=== PATIENT | female | born 1975 | race African-American/Black ===

== ENCOUNTER → 2017-06-29 | Outpatient (CLI) | payer OTHER ==
[~2017-06-29] MED LIST: CETI10 PO; FLUT50SP EACH NARE; IPRA0.03
== END ==
LOC: HPND 09:37
PROVIDERS: ATTEND Obstetrics & Gynecology
DX: O09.522 Supervision of elderly multigravida, second trimester (principal)
CPT/HCPCS: 76811

== ENCOUNTER → 2017-07-14 | Outpatient (CLI) | payer OTHER | LOC: HPND 14:25 | PROVIDERS: ATTEND Obstetrics & Gynecology | DX: O09.522 Supervision of elderly multigravida, second trimester (principal); O09.212 Supervision of pregnancy with history of pre-term labor, second trimester | CPT/HCPCS: 76815; 76817 ==

== ENCOUNTER → 2017-07-28 | Outpatient (CLI) | payer OTHER | LOC: HPND 13:56 | PROVIDERS: ATTEND Obstetrics & Gynecology | DX: O09.522 Supervision of elderly multigravida, second trimester (principal); O09.212 Supervision of pregnancy with history of pre-term labor, second trimester | CPT/HCPCS: 76816; 76817 ==

== ENCOUNTER → 2017-08-12 | Outpatient (CLI) | payer OTHER | LOC: HPND 09:40 | PROVIDERS: ATTEND Obstetrics & Gynecology | DX: O09.522 Supervision of elderly multigravida, second trimester (principal); O09.292 Supervision of pregnancy with other poor reproductive or obstetric history, second trimester; O09.212 Supervision of pregnancy with history of pre-term labor, second trimester; Z3A.00 Weeks of gestation of pregnancy not specified | CPT/HCPCS: 76815; 76817 ==

== ENCOUNTER → 2017-08-26 | Outpatient (CLI) | payer OTHER | LOC: HPND 09:50 | PROVIDERS: ATTEND Obstetrics & Gynecology | DX: O09.522 Supervision of elderly multigravida, second trimester (principal); O09.212 Supervision of pregnancy with history of pre-term labor, second trimester; O99.412 Diseases of the circulatory system complicating pregnancy, second trimester | CPT/HCPCS: 76816 ==

== ENCOUNTER 2017-10-28 10:56 | Emergency (ER) | payer MEDICAID ==
[2017-10-28 13:00] LABS: BILIRUBIN, URINE NEG (NEG); BLOOD, URINE NEG (NEG); GLUCOSE,URINE NEG (NEG); KETONE, URINE NEG (NEG); NITRITE,URINE NEG (NEG); PH, URINE 6.5 (5.0-8.5); SQUAMOUS EPITHELIAL CELL URINE <1 /hpf (0-5); URINE COLOR YELLOW (YELLW/STRAW); URINE LEUKOCYTE ESTERASE NEG (NEG)
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
== END 2017-10-28 13:05 | disposition home or self-care (01) ==
LOC: HOBED 10:56
DX: O47.03 False labor before 37 completed weeks of gestation, third trimester (principal); O09.523 Supervision of elderly multigravida, third trimester; Z3A.34 34 weeks gestation of pregnancy
CPT/HCPCS: 81001; 99283

== ENCOUNTER 2017-10-31 12:16 | Inpatient (IN) | payer MEDICAID ==
[~2017-10-31] VITALS: Ht 170.2 cm; Wt 83.0 kg
[2017-10-31] VITALS (9 sets, daily range): BP systolic 96–116; BP diastolic 58–62; PULSE 83–106; RESP 18; TEMP 97.9–98.4
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
[2017-10-31] MEDS: LACTATED RINGER'S 1000 ML INJ 1,000 ML IV SCH ×4 (13:47→23:24)
[2017-10-31] MEDS ORDERED: LACTATED RINGER'S 1000 ML INJ 1,000 ML IV PRN (13:47)
[2017-10-31] MEDS ORDERED: LIDOCAINE HCL 1% 50 ML VIAL I-DERMAL PRN (14:00)
[2017-10-31] MEDS ORDERED: MINERAL OIL 10 ML VIAL TOPICAL PRN (14:00)
[2017-10-31] MEDS ORDERED: SODIUM CHLORID 0.9% 500 ML INJ 500 ML IV PRN (14:00)
[2017-10-31] MEDS ORDERED: PENICILLIN G POTASSIUM INJ 5,000,000 UNITS in SODIUM CHLORIDE 0.9% INJ 100 ML IV ONE (14:00)
[2017-10-31] MEDS ORDERED: CITRIC ACID-SODIUM CITRATE LIQ 30 ML UDC PO SCH (14:00)
[2017-10-31] MEDS ORDERED: LIDOCAINE HCL 1% 50 ML VIAL INFIL PRN (14:00)
[2017-10-31] MEDS ORDERED: OXYTOCIN 30 UNITS-500ML PREMIX 500 ML IV ONE (14:00)
[2017-10-31] MEDS ORDERED: SODIUM CHLOR 0.9% 1000 ML INJ 1,000 ML IV PRN (14:07)
[2017-10-31] MEDS: BETAMETHASONE SOD PHOS/ACETATE SUSP 30 MG/5 ML VIAL IM SCH (14:17)
[2017-10-31 14:44] LABS: AUTOMATED NEUTROPHIL # 4.8 TH/MM3 (1.8-7.7); BASOPHIL % 0.4 % (0.0-2.0); EOSINOPHIL # 0.1 TH/MM3 (0-0.4); EOSINOPHIL % 0.8 % (0.0-4.0); HEMATOCRIT 33.3 % (35.0-46.0); HEMO FLAGS DIFF FINAL; LYMPH % 23.9 % (9.0-44.0); LYMPHOCYTE # 1.7 TH/MM3 (1.0-4.8); MEAN CELL VOLUME 84.1 FL (80.0-100.0); MEAN CORPUSCULAR HEMOGLOBIN 27.5 PG (27.0-34.0); MEAN CORPUSCULAR HGB CONC 32.7 % (32.0-36.0); MONO % 8.1 % (0.0-8.0); NEUT % 66.8 % (16.0-70.0); PLATELET COUNT 267 TH/MM3 (150-450); RED BLOOD COUNT 3.96 MIL/MM3 (4.00-5.30); RED CELL DISTRIBUTION WIDTH 13.1 % (11.6-17.2); WHITE BLOOD COUNT 7.2 TH/MM3 (4.0-11.0)
[2017-10-31] MEDS ORDERED: PREN29TA PO (14:59)
[2017-10-31 15:24] LABS: BACTERIA, URINE OCC /hpf; BLOOD, URINE NEG (NEG); COMMENT (UR) CULT NOT INDICATED; CULTURE IF INDICATED CULT NOT INDICATED; GLUCOSE,URINE NEG (NEG); KETONE, URINE NEG (NEG); MUCUS URINE FEW /lpf (OCC); NITRITE,URINE NEG (NEG); SQUAMOUS EPITHELIAL CELL URINE 3 /hpf (0-5); URINE COLOR YELLOW (YELLW/STRAW)
[2017-10-31] MEDS ORDERED: PENICILLIN G POTASSIUM INJ 2,500,000 UNITS in SODIUM CHLORIDE 0.9% INJ 100 ML IV SCH (18:00)
[2017-10-31] MEDS: PENICILLIN G POTASSIUM INJ 2,500,000 UNITS in SODIUM CHLORIDE 0.9% INJ 100 ML IV SCH (23:24)
[2017-11-01] VITALS (7 sets, daily range): BP systolic 101–108; BP diastolic 52–62; PULSE 90–103; RESP 16–18; TEMP 98.1
[2017-11-01] MEDS: PENICILLIN G POTASSIUM INJ 2,500,000 UNITS in SODIUM CHLORIDE 0.9% INJ 100 ML IV SCH (03:45)
[2017-11-01] MEDS ORDERED: ONDANSETRON HCL 4 MG/2 ML VIAL ONE (07:41)
--- NOTE | 2017-11-01 08:04 | PD.OB.ANTE ---
Subjective Diagnosis: (1) labor in third trimester Diagnosis: Principal (2) 34 weeks gestation of Diagnosis: Secondary (3) AMA (advanced maternal age) multigravida 35+ Diagnosis: Secondary Interval History No current complaints. No LOF, no VB. Endorses good FM. No regular contractions. Irregular cramps. Mild pelvic pressure 1/10, improved compared to admission. Antepartum ROS: Reports: movement normal, Denies: New complaints, Loss of fluid, Vaginal bleeding, Contractions, Other Objective Vital Signs Vital Signs Date Time Temp Pulse Resp B/P (MAP) Pulse Ox O2 Delivery O2 Flow Rate FiO2 11/01/17 07:43 18 11/01/17 06:00 18 11/01/17 04:00 16 11/01/17 02:00 16 10/31/17 23:36 98.4 18 10/31/17 23:27 106 96/62 (73) 10/31/17 21:00 18 10/31/17 19:19 18 10/31/17 18:46 83 107/58 (74) 10/31/17 18:45 98.2 10/31/17 15:15 97.9 10/31/17 15:03 89 116/59 (78) 10/31/17 15:00 18 Lab & Micro Results Test 10/31/17 14:15 10/31/17 14:25 Urine Color YELLOW Urine Turbidity CLEAR Urine pH 6.0 Urine Specific [place] 1.014 Urine Protein TRACE mg/dL Urine Glucose (UA) NEG mg/dL Urine Ketones NEG mg/dL Urine Occult Blood NEG Urine Nitrite NEG Urine Bilirubin NEG Urine Urobilinogen 4.0 MG/DL Urine Leukocyte Esterase TRACE Urine WBC 1 /hpf Urine Squamous Epithelial Cells 3 /hpf Urine Bacteria OCC /hpf Urine Mucus FEW /lpf Microscopic Urinalysis Comment CULT NOT INDICATED Urine Opiates Screen NEG Urine Barbiturates Screen NEG Urine Amphetamines Screen NEG Urine Benzodiazepines Screen NEG Urine Cocaine Screen NEG Urine Cannabinoids Screen NEG Group B Streptococcus (PCR) NEGATIVE White Blood Count 7.2 TH/MM3 Red Blood Count 3.96 MIL/MM3 Hemoglobin 10.9 GM/DL Hematocrit 33.3 % Mean Corpuscular Volume 84.1 FL Mean Corpuscular Hemoglobin 27.5 PG Mean Corpuscular Hemoglobin Concent 32.7 % Red Cell Distribution Width 13.1 % Platelet Count 267 TH/MM3 Mean Platelet Volume 7.3 FL Neutrophils (%) (Auto) 66.8 % Lymphocytes (%) (Auto) 23.9 % Monocytes (%) (Auto) 8.1 % Eosinophils (%) (Auto) 0.8 % Basophils (%) (Auto) 0.4 % Neutrophils # (Auto) 4.8 TH/MM3 Lymphocytes # (Auto) 1.7 TH/MM3 Monocytes # (Auto) 0.6 TH/MM3 Eosinophils # (Auto) 0.1 TH/MM3 Basophils # (Auto) 0.0 TH/MM3 CBC Comment DIFF FINAL Differential Comment Date/Time Source Procedure Growth Status 10/31/17 14:15 Genital Genital Region Group B Streptococcus Screen Pending Received Physical Exam GENERAL: Well-nourished, well-developed patient. CARDIOVASCULAR: Regular rate and rhythm without murmurs, gallops, or rubs. RESPIRATORY: Breath sounds equal bilaterally. No accessory muscle use. ABDOMEN/GI: Abdomen soft, non-tender. Fundus:35 GENITOURINARY: External Genitalia: intact and normal in appearance Cervix: soft, posterior Dilatation: [3 Effacement: [50 Station: [-2 Presentation: vtx Membranes: intact Uterine Contractions: rare FHT's: Category: [I] Baseline: [130s] Reactive: [y] Variability: [y] Decels: [n] EXTREMITIES: No cyanosis or edema, non-tender, without signs of DVT. Assessment and Plan Problem List: (1) labor in third trimester ICD Codes: O60.03 - labor without delivery, third trimester Status: Acute (2) 34 weeks gestation of ICD Codes: Z3A.34 - 34 weeks gestation of Status: Acute (3) AMA (advanced maternal age) multigravida 35+ ICD Codes: O09.529 - Supervision of elderly multigravida, unspecified trimester Status: Acute Assessment and Plan 42 yo with pavon IUP at 34w6d, admit 10/31/17 for c/o pressure, contractions, admitted for suspected labor 1) labor/contractions: initially on admission pt with contractions and pressure but these have subsided overnight. No cervical change compared to admission exam, /-2 for me this AM, very posterior. Betamethasone due for second dose at 2p today, on PCN for ppx, d/w pt continue current plan of care but if no continued change will consider discharge to home on bedrest; lives in [place] with fiance and 7yo son, mother lives here on [place] within 10m of hospital; d/w pt would need to stay at mother's house if discharged, [place] too far; pt aware & agrees 2) GBS performed on admit & pending 3) status: vertex, Cat I tracing Crys Haddad MD Nov 01, 2017 08:04
[2017-11-01] MEDS: LACTATED RINGER'S 1000 ML INJ 1,000 ML IV SCH (08:15)
[2017-11-01] MEDS: BETAMETHASONE SOD PHOS/ACETATE SUSP 30 MG/5 ML VIAL IM SCH (14:16)
--- NOTE | 2017-11-01 16:50 | HHI.PR ---
SKEIN INSPECTOR Note Note to bedside to evaluate patient; pt states no contractions, no leakage of fluid, no vaginal bleeding, endorses good movement, no pelvic pressure SVE remains unchanged from this AM /-2 to -3, very posterior d/w pt continued stay vs bedrest at home if stays within 15 min of hospital; pt agrees to outpt management, will comply with bedrest has OB Dx appt tmrw AM & appt w Dr. Orozco Tuesday precautions, return if any change in status s/p 2/2 Crys Pickett MD Nov 01, 2017 16:50
--- NOTE | 2017-11-01 16:55 | HHI.DS ---
Discharge Summary Admission Date Oct 31, 2017 at 13:52 Discharge Date: Nov 01, 2017 Admitting Diagnosis labor in third trimester (1) uterine contractions in third trimester, antepartum Diagnosis: Principal ICD Codes: O47.03 - False labor before 37 completed weeks of gestation, third trimester Status: Acute Brief History 42 yo with pavon IUP admitted at 34w5d for contractions, change on cervical exam from 1>3cm. Has history of delivery with prior gestation. CBC/BMP: 10/31/17 1425 Significant Findings Laboratory Tests Test 10/31/17 14:15 10/31/17 14:25 Urine Urobilinogen 4.0 MG/DL (LESS THAN Urine Leukocyte Esterase TRACE (NEG) Urine Bacteria OCC /hpf (NONE) Urine Mucus FEW /lpf (OCC) Red Blood Count 3.96 MIL/MM3 (4.00-5.30) Hemoglobin 10.9 GM/DL (11.6-15.3) Hematocrit 33.3 % (35.0-46.0) Monocytes (%) (Auto) 8.1 % (0.0-8.0) PE at Discharge NAD A&Ox3 CTA b/l no wheeze RRR abd gravid c/w dates SVE 3/50/-2 to -3, unchanged over >24h no c/c/e x4 Hospital Course Pt admitted around noon 10/31/17 with contractions at 34w5d. IV PCN started for ppx, GBS performed (negative), betamethasone dosing administered. Over 36h patient had no cervical change, contractions dissipated. Due to posterior cervix and reliable patient with ability to stay at mother's house within 15 minutes of hospital, decision made for discharge to home on bedrest with close follow-up; has appt with [facility] tomorrow AM and office appt with Dr. Orozco on Tuesday11/04/17. Discussed precautions in detail, pt voices understanding. Pt Condition on Discharge: Good Discharge Disposition: Discharge Home Discharge Instructions DIET: Follow Instructions for: As Tolerated, No Restrictions Activities you can perform: Pelvic Rest, Continue Bedrest Activities to avoid: Prolonged Standing, Strenuous Activity, Driving, Sexual Activity Crys Haddad MD Nov 01, 2017 16:55
== END 2017-11-01 17:21 | disposition home or self-care (01) | DRG 778 ==
LOC: HOBED 12:16 → H2EB 13:52
PROVIDERS: ADMIT Obstetrics & Gynecology; ATTEND Obstetrics & Gynecology
DX: O60.03 Preterm labor without delivery, third trimester (principal); Z3A.34 34 weeks gestation of pregnancy
CPT/HCPCS: 59025; 80307; 81001; 85025; 86900; 86901; 87081; 87150; J0702; J2405; J2540; J7120

== ENCOUNTER 2017-11-14 01:40 | Emergency (ER) | payer MEDICAID ==
[~2017-11-14] VITALS: Ht 170.2 cm; Wt 83.5 kg
[~2017-11-14 01:40] MED LIST changes: -CETI10 PO; -FLUT50SP EACH NARE; -IPRA0.03; +PREN29TA PO
--- NOTE | 2017-11-14 02:16 | PD ---
HPI Chief Complaint Pelvic pressure getting worse the last 2-3 hours Date Seen: Nov 14, 2017 Time Seen: 02:05 Travel History International Travel<30 Days: No Contact w/Intl Traveler<30Days: No Known Affected Area: No History of Present Illness HPI Patient is 42-year-old black female 36 weeks and 5 days who is a patient of Dr. Orozco's she complains of increasing pelvic pressure and the last 2-3 hours that's uncomfortable but not painful and she does not complain of contractions just this pelvic discomfort, denies leakage or bleeding. No contractions seen on the monitor. heart tones are reactive. Weeks Gestation: 36 Para: 2 : 4 Miscarriage: 1 History Obstetric History Obstetric History 2 previous vaginal deliveries one early loss Social History Alcohol Use: No Tobacco Use: No Substance Abuse: No Allergies-Medications (Allergen,Severity, Reaction): Coded Allergies: No Known Allergies (Verified Allergy, Unknown, 10/31/17) Home Meds Reported Medications Vit-Iron Carbonyl ( Plus Iron 29-1 mg) 29 Mg Iron-1 Mg Tab, 1 TAB PO DAILY for Nutritional Supplement, #30 TAB 0 Refills 10/31/17 Review of Systems General / Constitutional: No: Fever, Weight Gain, Chills, Other Eyes: No: Diploplia, Blurred Vision, Visual changes, Pain, Photophobia HENT: No: Headaches, Vertigo, Lightheadedness Cardiovascular: No: Irregular Rhythm, Chest Pain or Discomfort, Palpitations, Tachycardia, Syncope, Varicosities, Edema, Cyanosis Respiratory: No: Cough, Short of Breath, Other Gastrointestinal: No: Nausea, Vomiting, Diarrhea Genitourinary: No: Decreased Urinary Output, Oliguria Musculoskeletal: No: Limited ROM, Weakness, Cramping, Edema, Pain Skin: No Rash, No Itching, No Dryness, No Lumps, No Change in Pigmentation, No Change in Nails, No Alopecia, No Lesions Neurologic: No: Weakness, Dizziness, Syncope, Focal Abnormalities, Coordination Problem, Headache, Slurred Speech, Seizures Psychiatric: No: Depression, Suicidal Ideations, Homicidal Ideation Endocrine: No: Heat Intolerance, Cold Intolerance, Polydipsia, Polyuria, Other Physical Exam Narrative GENERAL: Well-nourished, well-developed patient. SKIN: Warm and dry. HEAD: Normocephalic and atraumatic. EYES: No scleral icterus. No injection or drainage. ENT: No nasal drainage noted. Mucous membranes pink. Airway patent. NECK: Supple, trachea midline. No JVD. CARDIOVASCULAR: Regular rate and rhythm without murmurs, gallops, or rubs. RESPIRATORY: Breath sounds equal bilaterally. No accessory muscle use. BREASTS: Bilateral exam showed no masses , no retractions, no nipple discharge. ABDOMEN/GI: Abdomen soft, non-tender, bowel sounds present, no rebound, no guarding Gravid to [36-] weeks size Fundal Height: [-36] GENITOURINARY: External Genitalia: intact and normal in appearance BUS glands: [-] Cervix: [-very posterior] Dilatation: [2-3-] Effacement: [50-] Station: [+1 babys head is very low in pelvis noted just after entering the vagina but the cx os is way posterior and unchanged Presentation: [-vtx] Membranes: [intact ] Uterine Contractions: [none-] FHT's: Category: [1-] Baseline: [133-] Reactive: [-yes] Variability: [mod-] Decels: [none-] EXTREMITIES: No cyanosis or edema. BACK: Nontender without obvious deformity. No CVA tenderness. NEUROLOGICAL: Awake and alert. Motor and sensory grossly within normal limits. Five out of 5 muscle strength in all muscle groups. Normal speech. MDM Interpretation(s) Patient is 42-year-old black female A1 at 36-37 weeks complaining of increased pelvic pressure. Denies pain, bleeding, leakage. The heart tones are reactive and no contractions seen. Cervix is still 2-3 cm and 50% and very posterior all very hard even reach however the baby's head is very low in the pelvis essentially as soon as you enter the vagina the head is basically at about +1 station but it's being palpated through the cervix and lower uterine segment cervix itself way posterior and unchanged Plan Plan for patient to be off her feet as much as possible to allow gravity to work for her versus against her she is up and around, the baby's head can feel just like its so low right between her legs, so being off her feet at rest with a heating pad or hot bath will help some of the symptoms Diagnosis Diagnosis: Primary Impression: Feeling pelvic pressure in in third trimester, antepartum Disposition: 01 DISCHARGE HOME Condition: Stable Matthew Lopez II, MD Nov 14, 2017 02:16
== END 2017-11-14 02:22 | disposition home or self-care (01) ==
LOC: HOBED 01:40
DX: O26.893 Other specified pregnancy related conditions, third trimester (principal); R10.2 Pelvic and perineal pain; Z3A.36 36 weeks gestation of pregnancy
CPT/HCPCS: 59025

== ENCOUNTER 2017-11-22 06:13 | Inpatient (IN) | payer MEDICAID ==
[~2017-11-22] VITALS: Ht 170.2 cm; Wt 83.0 kg
[2017-11-22] VITALS (26 sets, daily range): BP systolic 102–127; BP diastolic 28–81; PULSE 75–116; RESP 18–20; TEMP 97.6–97.9; O2SAT 97
[2017-11-22] MEDS ORDERED: NS 1000 ML IV PRN (06:45)
[2017-11-22] MEDS ORDERED: LIDOCAINE HCL 1% 50 ML VIAL INFIL PRN (06:45)
[2017-11-22] MEDS ORDERED: LACTATED RINGER'S 1000 ML BOLUS IV PRN (06:45)
[2017-11-22] MEDS ORDERED: MINERAL OIL 10 ML VIAL TOPICAL PRN (06:45)
[2017-11-22] MEDS ORDERED: LIDOCAINE HCL 1% 50 ML VIAL I-DERMAL PRN (06:45)
[2017-11-22] MEDS ORDERED: CITRIC ACID-SODIUM CITRATE LIQ 30 ML UDC PO SCH (06:45)
[2017-11-22] MEDS ORDERED: OXYTOCIN 30 UNITS/NS 500ML PREMIX IV SCH (06:45)
[2017-11-22] MEDS ORDERED: NS 500 ML BOLUS IV PRN (06:45)
[2017-11-22] MEDS ORDERED: ONDANSETRON HCL 4 MG/2 ML VIAL IV PUSH PRN (06:45)
[2017-11-22] MEDS ORDERED: OXYTOCIN 30 UNITS 500ML PREMIX IV ONE (06:45)
[2017-11-22] MEDS: LACTATED RINGER'S 1000 ML IV SCH ×2 (07:05→11:28)
[2017-11-22 07:44] LABS: AUTOMATED NEUTROPHIL # 3.3 TH/MM3 (1.8-7.7); BASOPHIL % 0.4 % (0.0-2.0); EOSINOPHIL % 0.7 % (0.0-4.0); HEMATOCRIT 31.1 % (35.0-46.0); HEMOGLOBIN 10.5 GM/DL (11.6-15.3); LYMPH % 36.3 % (9.0-44.0); LYMPHOCYTE # 2.2 TH/MM3 (1.0-4.8); MEAN CELL VOLUME 82.4 FL (80.0-100.0); MEAN CORPUSCULAR HGB CONC 33.9 % (32.0-36.0); MEAN PLATELET VOLUME 7.5 FL (7.0-11.0); MONO % 9.1 % (0.0-8.0); MONOCYTE # 0.6 TH/MM3 (0-0.9); NEUT % 53.5 % (16.0-70.0); PLATELET COUNT 257 TH/MM3 (150-450); RED BLOOD COUNT 3.77 MIL/MM3 (4.00-5.30); WHITE BLOOD COUNT 6.1 TH/MM3 (4.0-11.0)
[2017-11-22 07:59] LABS: BACTERIA, URINE FEW /hpf; BILIRUBIN, URINE NEG (NEG); BLOOD, URINE NEG (NEG); CALCIUM OXALATE CRYSTALS,URINE OCC /hpf; GLUCOSE,URINE NEG (NEG); KETONE, URINE NEG (NEG); MUCUS URINE MOD /lpf (OCC); NITRITE,URINE NEG (NEG); SQUAMOUS EPITHELIAL CELL URINE 11 /hpf (0-5); URINE COLOR YELLOW (YELLW/STRAW); URINE LEUKOCYTE ESTERASE LARGE (NEG)
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
[2017-11-22] MEDS ORDERED: LIDOCAINE HCL 1% 20 ML VIAL ONE (11:46)
[2017-11-22] MEDS ORDERED: LIDOCAINE HCL 1% 20 ML VIAL I-DERMAL PRN (12:00)
[2017-11-22] MEDS ORDERED: LIDOCAINE HCL 1% 20 ML VIAL INFIL PRN (12:00)
--- NOTE | 2017-11-22 12:30 | PD.OB.DELI ---
Weeks gestation: 38 Gest age assessed date: Nov 22, 2017 Pt started active labor?: Yes Medical induction of labor?: Yes Artificial rupture of membrane: Yes Anesthesia: Lidocaine local to perineum Episiotomy: None Vaginal Delivery: Normal, Precipitous Presentation: Other (ROT right arm presentation) Nuchal Cord: None Delayed cord clamping (45 sec): Yes : Male Delivery date: Nov 22, 2017 Delivery time: 11:44 One Minute : 8 Five Minute : 9 Weight: 5 lb 11oz Placenta: Spontaneous delivery, Intact Laceration: 1 deg Repair: Chromic interrupted Estimated blood loss: 100ml Additional Information precipitous delivery, delivered by Nereyda Watkins MD Nov 22, 2017 12:30
[2017-11-22] MEDS ORDERED: ONDANSETRON ODT 4 MG TAB PO PRN (12:45)
[2017-11-22] MEDS ORDERED: SODIUM CHLORIDE 0.9% FLUSH 10 ML FLUSH IV FLUSH PRN (12:45)
[2017-11-22] MEDS ORDERED: OXYTOCIN 30 UNITS-500ML PREMIX 500 ML IV SCH (12:45)
[2017-11-22] MEDS ORDERED: BENZOCAINE 20% TOPICAL SPRAY 60 ML CAN TOPICAL PRN (12:45)
[2017-11-22] MEDS ORDERED: DOCUSATE SODIUM 50 MG/SENNA 8.6 MG TAB PO PRN (12:45)
[2017-11-22] MEDS ORDERED: ALUMINUM/MAGNESIUM/SIMETH 30 ML CUP PO PRN (12:45)
[2017-11-22] MEDS ORDERED: IBUPROFEN 800 MG TAB PO PRN (12:45)
[2017-11-22] MEDS ORDERED: ACETAMINOPHEN 325 MG TAB PO PRN (12:45)
[2017-11-22] MEDS ORDERED: DIPHTH/TETANUS/ACEL PERTUSSIS (BOOSTER) 0.5 ML VIAL/PFS IM ONE (16:00)
[2017-11-22] MEDS ORDERED: MEASLES, MUMPS, RUBELLA VACCINE 0.5 ML VIAL SQ ONE (16:00)
[2017-11-22] MEDS: WITCH HAZEL 50%/GLYCERIN 12.5% 40 PAD JAR TOPICAL PRN (16:37)
[2017-11-22] MEDS ORDERED: ZOLPIDEM TARTRATE 5 MG TAB PO PRN (21:00)
[2017-11-22] MEDS ORDERED: SODIUM CHLORIDE 0.9% FLUSH 10 ML FLUSH IV FLUSH SCH (21:00)
[2017-11-23 08:00] VITALS: BP 106/76; PULSE 80; RESP 16; TEMP 97.8
--- NOTE | 2017-11-23 09:05 | HHI.OB ---
Subjective Post Day: 1 Remarks s/p uncomplicated of healthy male ; bottle feeding Objective Vitals/I&O Vital Signs Date Time Temp Pulse Resp B/P (MAP) Pulse Ox O2 Delivery O2 Flow Rate FiO2 11/23/17 08:00 106/76 (86) 11/22/17 20:00 97.9 84 18 107/66 (80) 97 11/22/17 14:00 92 104/67 (79) 11/22/17 13:30 100 112/72 (85) 11/22/17 13:00 82 102/66 (78) 11/22/17 12:46 86 103/28 (53) 11/22/17 12:45 18 11/22/17 12:35 83 102/59 (73) 11/22/17 12:32 18 11/22/17 12:16 95 114/45 (68) 11/22/17 12:10 18 11/22/17 12:00 116 119/62 (81) 11/22/17 11:58 20 11/22/17 11:57 116 124/54 (77) 11/22/17 11:31 106 127/81 (96) 11/22/17 11:00 86 116/63 (80) 11/22/17 10:30 88 116/73 (87) 11/22/17 10:14 97.6 18 11/22/17 10:00 83 114/71 (85) 11/22/17 09:30 84 117/70 (86) Objective Remarks GENERAL: Well-nourished, well-developed patient. CARDIOVASCULAR: Regular rate and rhythm without murmurs, gallops, or rubs. RESPIRATORY: Breath sounds equal bilaterally. No accessory muscle use. ABDOMEN/GI: Abdomen soft, non-tender. Fundus: Firm, non-tender at umbilicus. GENITOURINARY: Light bleeding. EXTREMITIES: No cyanosis or edema, non-tender, without signs of DVT. Medications and IVs Current Medications Medications (Trade) Dose Ordered Sig/Catracho Route Start Time Stop Time Status Last Admin (NS Flush) 2 ml BID IV FLUSH 11/22/17 21:00 (NS Flush) 2 ml UNSCH PRN IV FLUSH 11/22/17 12:45 (Tylenol) 650 mg Q4H PRN PO 11/22/17 12:45 (Motrin) 800 mg Q8H PRN PO 11/22/17 12:45 (Americaine 20% Top Spr) 1 spray Q4H PRN TOPICAL 11/22/17 12:45 11/22/17 16:37 (Tucks Pads) 1 applic QID PRN TOPICAL 11/22/17 12:45 11/22/17 16:37 (Miya-Colace) 2 tab Q12H PRN PO 11/22/17 12:45 (Ambien) 5 mg HS PRN PO 11/22/17 21:00 (Mag-Al Plus Susp Liq) 15 ml Q8H PRN PO 11/22/17 12:45 (Zofran Odt) 4 mg Q6H PRN PO 11/22/17 12:45 Assessment/Plan Problem List: (1) (spontaneous vaginal delivery) ICD Codes: O80 - Encounter for full-term uncomplicated delivery Status: Acute (2) Advanced maternal age in multigravida ICD Codes: O09.529 - Supervision of elderly multigravida, unspecified trimester Status: Chronic Qualifiers: Qualified Codes: O09.523 - Supervision of elderly multigravida, third trimester (3) Mitral regurgitation ICD Codes: I34.0 - Nonrheumatic mitral (valve) insufficiency Status: Chronic Qualifiers: Qualified Codes: I34.0 - Nonrheumatic mitral (valve) insufficiency (4) History of delivery ICD Codes: Z87.51 - Personal history of pre-term labor Status: Chronic Assessment and Plan 42 yo s/p FT at 38 wks 1) PP doing well, bottle feeding, continue supportive care 2) MVP/Mitral regurgitation- nl ejection fraction last echo on 08/24/17 at [facility], mild MR. 3) dyspnea- improved on bedrest. Had neg VQ scan Cont pulm and cardiology evaluation pp outpt 4) GBS neg 5) AMA- neg cfDNA, normal anatomy and echo 6) dispo: anticipate d/c to home tmrw 11/24/17 Discharge Planning routine, 11/24/17 Crys Haddad MD Nov 23, 2017 09:05
[2017-11-23 20:00] VITALS: BP 100/64; PULSE 82; RESP 18; TEMP 98
[2017-11-24] MEDS: WITCH HAZEL 50%/GLYCERIN 12.5% 40 PAD JAR TOPICAL PRN (05:47)
[2017-11-24 08:00] VITALS: BP 129/64; PULSE 80; RESP 16; TEMP 97.8
--- NOTE | 2017-11-24 08:41 | HHI.OB ---
Subjective Post Day: 2 Remarks doing well, ready for d/c home, no complaints Objective Vitals/I&O Vital Signs Date Time Temp Pulse Resp B/P (MAP) Pulse Ox O2 Delivery O2 Flow Rate FiO2 11/23/17 20:00 98.0 82 18 100/64 (76) Objective Remarks GENERAL: Well-nourished, well-developed patient. CARDIOVASCULAR: Regular rate and rhythm without murmurs, gallops, or rubs. RESPIRATORY: Breath sounds equal bilaterally. No accessory muscle use. ABDOMEN/GI: Abdomen soft, non-tender. Fundus: Firm, non-tender at umbilicus. GENITOURINARY: Light bleeding. EXTREMITIES: No cyanosis or edema, non-tender, without signs of DVT. Medications and IVs Current Medications Medications (Trade) Dose Ordered Sig/Catracho Route Start Time Stop Time Status Last Admin (NS Flush) 2 ml BID IV FLUSH 11/22/17 21:00 (NS Flush) 2 ml UNSCH PRN IV FLUSH 11/22/17 12:45 (Tylenol) 650 mg Q4H PRN PO 11/22/17 12:45 (Motrin) 800 mg Q8H PRN PO 11/22/17 12:45 (Americaine 20% Top Spr) 1 spray Q4H PRN TOPICAL 11/22/17 12:45 11/22/17 16:37 (Tucks Pads) 1 applic QID PRN TOPICAL 11/22/17 12:45 11/24/17 05:47 (Miya-Colace) 2 tab Q12H PRN PO 11/22/17 12:45 (Ambien) 5 mg HS PRN PO 11/22/17 21:00 (Mag-Al Plus Susp Liq) 15 ml Q8H PRN PO 11/22/17 12:45 (Zofran Odt) 4 mg Q6H PRN PO 11/22/17 12:45 Assessment/Plan Problem List: (1) (spontaneous vaginal delivery) ICD Codes: O80 - Encounter for full-term uncomplicated delivery Status: Acute (2) Advanced maternal age in multigravida ICD Codes: O09.529 - Supervision of elderly multigravida, unspecified trimester Status: Chronic Qualifiers: Qualified Codes: O09.523 - Supervision of elderly multigravida, third trimester (3) Mitral regurgitation ICD Codes: I34.0 - Nonrheumatic mitral (valve) insufficiency Status: Chronic Qualifiers: Qualified Codes: I34.0 - Nonrheumatic mitral (valve) insufficiency (4) History of delivery ICD Codes: Z87.51 - Personal history of pre-term labor Status: Chronic Assessment and Plan 42 yo s/p FT at 38 wks 1) PPD #2: doing well, meeting milestones, d/c home today, discussed expectations and precautions. - male, s/p circ this AM 2) MVP/Mitral regurgitation- nl ejection fraction last echo on 08/24/[address] [facility], mild MR. Mustapha Lee MD Nov 24, 2017 08:41
--- NOTE | 2017-11-24 08:42 | HHI.DCPOC ---
Discharge Care Plan Your Health Problems Are: Vaginal delivery Report Symptoms to Your Doctor -Temperature above 100.5 degrees -Redness, of incision or excessive or foul smelling drainage -Unusual pain or calf pain -Increased vaginal bleeding -Painful or difficulty urinating -Feelings of extreme sadness or anxiety after 2 weeks Goals to Promote Your Health * To prevent worsening of your condition and complications * To maintain your health at the optimal level Directions to Meet Your Goals Take your medications as prescribed Follow your dietary instruction Follow activity as directed Ensure plenty of rest for recovery Drink fluids for hydration Keep your appointments as scheduled Take your immunizations and boosters as scheduled If your symptoms worsen call your PCP, if no PCP go to Urgent Care Center or Emergency Room Smoking is Dangerous to Your Health. Avoid second hand smoke Call the 24-hour crisis hotline for domestic abuse at Mustapha Lee MD Nov 24, 2017 08:42
== END 2017-11-24 10:28 | disposition home or self-care (01) | DRG 774 ==
LOC: H2EB 06:13 → H1EA 14:23
PROVIDERS: ADMIT Obstetrics & Gynecology; ATTEND Obstetrics & Gynecology
PROC: 10E0XZZ Delivery of Products of Conception, External Approach (ICD-10-PCS; principal; 2017-11-22)
PROC: 10907ZC Drainage of Amniotic Fluid, Therapeutic from Products of Conception, Via Natural or Artificial Opening (ICD-10-PCS; 2017-11-22)
PROC: 0HQ9XZZ Repair Perineum Skin, External Approach (ICD-10-PCS; 2017-11-22)
DX: O99.42 Diseases of the circulatory system complicating childbirth (principal); I34.0 Nonrheumatic mitral (valve) insufficiency; I34.1 Nonrheumatic mitral (valve) prolapse; O70.0 First degree perineal laceration during delivery; O62.3 Precipitate labor; O32.2XX0 Maternal care for transverse and oblique lie, not applicable or unspecified; Z37.0 Single live birth; Z3A.38 38 weeks gestation of pregnancy
CPT/HCPCS: 59025; 80307; 81001; 85025; 86900; 86901; 90715; J2590; J3010; J7120